=== PATIENT | male | born 1950 | race Caucasian/White ===

== ENCOUNTER 2023-11-20 07:50 | Outpatient (CLI) | payer MEDICARE, OTHER ==
[~2023-11-20] VITALS: Ht 182.9 cm; Wt 113.0 kg
[2023-11-20 08:41] VITALS: BP 139/67; PULSE 63; TEMP 97.5
[2023-11-20 09:43] LABS: ALBUMIN 2.2 gm/dL (3.4-4.8); BILIRUBIN,TOTAL 1.4 mg/dL (0.2-1.2); CALCIUM 8.8 mg/dL (8.4-10.2); CREATININE, serum 1.05 mg/dL (0.72-1.25); POTASSIUM 3.5 mmol/L (3.5-4.5); TOTAL PROTEIN 5.8 gm/dL (6.2-8.1); URIC ACID 3.2 mg/dL (3.5-7.2)
[2023-11-20] MEDS ORDERED: ASPIRIN E.C. 8181 MG PO (12:24)
[2023-11-20] MEDS ORDERED: JARDIANCE10 PO (12:25)
[2023-11-20] MEDS ORDERED: GLUCOPHAGE500 MG/TAB PO (12:26)
[2023-11-20] MEDS ORDERED: TOPROL XL 50MG50 MG PO (12:26)
[2023-11-20] MEDS ORDERED: PROTONIX 40MG T40 MG PO (12:26)
[2023-11-20] MEDS ORDERED: CRESTOR40 MG PO (12:27)
[2023-11-20] MEDS ORDERED: NITROSTAT0.3 MG SL (12:27)
[2023-11-20] MEDS ORDERED: BRILINTA90 MG PO (12:27)
[2023-11-20] MEDS ORDERED: ZYLOPRIM 300MG300 MG PO (12:28)
[2023-11-20] MEDS ORDERED: XANAX .25M0.25 MG/TA PO (12:28)
[2023-11-20 12:29] LABS: HEMATOCRIT 25.8 % (42.0-52.0); HEMOGLOBIN 8.1 g/dl (13.5-18.0); MEAN CELL VOLUME 96 fl (80.0-100.0); MEAN CORPUSCULAR HEMOGLOBIN 30 pg (27-31); MEAN CORPUSCULAR HGB CONC 31 g/dl (33.0-37.0); MEAN PLATELET VOLUME 9.3 fl (7.4-10.4); PLATELET COUNT 293 K/mm3 (130-400); RED BLOOD COUNT 2.68 M/mm3 (4.20-5.60)
[2023-11-20] MEDS ORDERED: OXY IR5 MG PO (12:29)
[2023-11-20] MEDS ORDERED: PROZAC 20MG20 MG PO (12:29)
[2023-11-20] MEDS ORDERED: RESTORIL 77.5 MG/CAP PO (12:30)
[2023-11-20] MEDS ORDERED: MILLIPRED DP5 MG PO (12:30)
[2023-11-20] MEDS ORDERED: COMPAZINE 110 MG/TAB PO (12:30)
[2023-11-20 12:38] LABS: ANISOCYTOSIS 2+; EOSINOPHIL 1 % (0-4); HYPOCHROMIA 2+; LYMPHOCYTE 27 % (20.0-51.0); NEUTROPHILS 63 % (42.0-75.2); PLATELET ESTIMATE NORMAL (NORMAL)
[2023-11-20 12:39] LABS: STOMATOCYTE 2+
[2023-11-20 22:09] LABS: HEPATITIS B CORE AB,TOTAL Negative (Negative); HEPATITIS B SURFACE ANTIBODY <2.0 (()); HEPATITIS B SURFACE ANTIGEN Negative (Negative); HEPATITIS C VIRUS ANTIBODY Negative (Negative)
== END 2023-11-20 09:30 | disposition home or self-care (01) ==
LOC: EUO 07:50
PROVIDERS: Internal Medicine
DX: C83.39 Diffuse large B-cell lymphoma, extranodal and solid organ sites (principal)
CPT/HCPCS: C1751